=== PATIENT | male | born 1950 | race Caucasian/White ===

== ENCOUNTER 2021-11-14 20:36 | Emergency (ER) | payer BC ==
[~2021-11-14] VITALS: Ht 172.7 cm; Wt 97.0 kg
[~2021-11-14 20:36] MED LIST: ALEVE220 M2 PO; NEXIUM40 M1 PO
[2021-11-14 20:46] VITALS: BP 153/83
[2021-11-14 21:01] VITALS: BP 153/75
[2021-11-14 21:19] LABS: HEMATOCRIT 47.5 % (39.0-50.0); HEMOGLOBIN 15.9 g/dl (14.0-18.0); IMMATURE GRANULOCYTES 0.8 % (0.0-5.0); MEAN CELL VOLUME 93.1 fL CALC (80.0-100.0); MEAN CORPUSCULAR HGB 31.2 pG CALC (26.0-32.0); MEAN CORPUSCULAR HGB CONC 33.5 g/dL CAL (32.0-36.0); NEUT# 6.39 thou/uL (1.82-7.42); RED BLOOD COUNT 5.1 mill/uL (4.70-6.10); RED CELL DISTRI WIDTH 13.3 % (11.5-15.5)
[2021-11-14 21:31] VITALS: BP 128/67
[2021-11-14 21:36] LABS: ALBUMIN 4.3 g/dL (3.2-5.0); ALKALINE PHOSPHATASE 52 u/l (38-126); BILIRUBIN, TOTAL 0.7 mg/dL (0.0-1.4); BUN 19 mg/dL (8-23); BUN/CREATININE RATIO 15 (12-20 (CALC)); CARBON DIOXIDE 27 mmol/l (22-30); CHLORIDE 105 mmol/l (95-108); CREATININE 1.2 mg/dL (0.7-1.3); GFR FOR AFR.AMER. > 60 ML/MIN (>=60 (CALC)); GFR OTHER RACES 60 ML/MIN (>=60 (CALC)); SGOT/AST 26 u/l (19-48); SODIUM 141 mmol/l (137-146); TOTAL PROTEIN 7.9 g/dL (6.3-8.2)
[2021-11-14 21:38] LABS: ANION GAP 12 (6-22 (CALC)); POTASSIUM 3.3 mmol/l (3.5-5.1)
[2021-11-14 21:45] LABS: D-DIMER 0.43 mg/L (0.19-0.60)
[2021-11-14 21:47] LABS: MYOGLOBIN 90 ng/mL (0 - 121)
[2021-11-14 21:53] LABS: ACT PARTIAL THROMBO TIME 22.8 SECONDS (20.0-32.5); PROTHROMBIN TIME 10.2 SECONDS (9.0-12.5)
[2021-11-14 22:30] VITALS: BP 139/69
[2021-11-14] MEDS ORDERED: ASPIRIN81 MG PO (22:47)
[2021-11-14] MEDS ORDERED: PROTONIX40 M2 PO (22:47)
[2021-11-14] MEDS ORDERED: ALLOPURINOL300 MG PO (22:47)
[2021-11-14] MEDS ORDERED: ATORVASTATIN CA80 MG PO (22:48)
[2021-11-14] MEDS ORDERED: METOPROL TAR25 MG PO (22:48)
[2021-11-14] MEDS ORDERED: LOSARTAN POTASS50 MG PO (22:48)
[2021-11-14] MEDS ORDERED: VITAMIN D31000 UNI3 PO (22:49)
[2021-11-14] MEDS ORDERED: POTASSIUM CHLO20 ME1 PO (23:18)
[2021-11-14 23:27] VITALS: BP 139/69
== END 2021-11-14 23:43 | disposition home or self-care (01) | DRG 179 ==
LOC: ED 20:36
PROVIDERS: Family Medicine
DX: U07.1 COVID-19 (principal); R06.00 Dyspnea, unspecified; E87.6 Hypokalemia; I10 Essential (primary) hypertension; Z95.1 Presence of aortocoronary bypass graft
CPT/HCPCS: Q9967

== ENCOUNTER 2022-08-23 12:42 | Observation (INO) | payer BC ==
[~2022-08-23] VITALS: Ht 172.7 cm; Wt 95.4 kg
[~2022-08-23 12:42] MED LIST changes: +ALLOPURINOL300 MG PO; +ASPIRIN81 MG PO; +ATORVASTATIN CA80 MG PO; +LOSARTAN POTASS50 MG PO; +METOPROL TAR25 MG PO; +POTASSIUM CHLO20 ME1 PO; +PROTONIX40 M2 PO; +VITAMIN D31000 UNI3 PO
[2022-08-23 12:51] VITALS: BP 131/59
[2022-08-23] MEDS ORDERED: CRESTOR40 MG PO (13:10)
[2022-08-23 13:12] LABS: BASO% 0.4 % (0-3); EOS% 3.8 % (0-8); IMMATURE GRANULOCYTES 0.5 % (0.0-5.0); LYMPH% 11.7 % (15-41); MEAN CELL VOLUME 95.8 fL CALC (80.0-100.0); MEAN CORPUSCULAR HGB 31.6 pG CALC (26.0-32.0); NEUT# 8.34 thou/uL (1.82-7.42); NEUT% 75.6 % (42-76); RED BLOOD COUNT 4.02 mill/uL (4.70-6.10); RED CELL DISTRI WIDTH 13.5 % (11.5-15.5)
[2022-08-23] MEDS ORDERED: PLAVIX75 MG PO (13:12)
[2022-08-23 13:15] VITALS: BP 106/56
[2022-08-23 13:15] LABS: HEMATOCRIT 38.5 % (39.0-50.0); HEMOGLOBIN 12.7 g/dl (14.0-18.0)
[2022-08-23] MEDS ORDERED: CITALOPRAM40 MG PO (13:15)
[2022-08-23] MEDS ORDERED: LEVOTHYROXIN25 MC1 PO (13:16)
[2022-08-23 13:30] VITALS: BP 121/62
[2022-08-23 13:33] LABS: ALBUMIN 3.5 g/dL (3.2-5.0); BILIRUBIN, TOTAL 0.8 mg/dL (0.2-1.3); CREATININE 3.8 mg/dL (0.7-1.3); POTASSIUM 4.2 mmol/l (3.5-5.1); TOTAL PROTEIN 6.5 g/dL (6.3-8.2)
[2022-08-23 15:22] LABS: URINE BILIRUBIN - DIPSTICK NEGATIVE (NEGATIVE); URINE BLOOD DIPSTICK SMALL (NEGATIVE); URINE GLUCOSE - DIPSTICK NEGATIVE (NEGATIVE); URINE KETONE NEGATIVE (NEGATIVE); URINE LEUK ESTERASE NEGATIVE (NEGATIVE); URINE PH 5.5 (4.5-8.0); URINE PROTEIN - DIPSTICK TRACE mg/dL (NEG-TRACE); URINE SPECIFIC GRAVITY 1.025; URINE UROBILINOGEN - DIPSTICK 0.2 E.U./dL (0.2)
[2022-08-23 15:23] LABS: URINE COLOR DK. YELLOW; URINE NITRITE - DIPSTICK NEGATIVE (Negative)
[2022-08-23 15:30] LABS: URINE RBC 0-2 RBC/hpf (0-5); URINE WBC 0-2 WBC/hpf (0-5)
[2022-08-23 15:32] LABS: URINE FINE GRAN CAST FEW lpf
[2022-08-23 15:33] LABS: URINE HYALINE CAST FEW lpf (NONE-RARE)
[2022-08-23 19:47] VITALS: BP 139/64
[2022-08-23 23:56] VITALS: BP 145/64
[2022-08-24] VITALS (8 sets, daily range): BP systolic 123–161; BP diastolic 64–79
[2022-08-24 05:42] LABS: BASO% 0.4 % (0-3); EOS% 5.7 % (0-8); HEMATOCRIT 34.6 % (39.0-50.0); HEMOGLOBIN 11.3 g/dl (14.0-18.0); IMMATURE GRANULOCYTES 0.6 % (0.0-5.0); LYMPH% 13.9 % (15-41); MEAN CELL VOLUME 96.4 fL CALC (80.0-100.0); MEAN CORPUSCULAR HGB 31.5 pG CALC (26.0-32.0); MEAN CORPUSCULAR HGB CONC 32.7 g/dL CAL (32.0-36.0); MONO% 9.5 % (2-13); NEUT# 5.9 thou/uL (1.82-7.42); NEUT% 69.9 % (42-76); RED BLOOD COUNT 3.59 mill/uL (4.70-6.10); RED CELL DISTRI WIDTH 13.5 % (11.5-15.5)
[2022-08-24 05:50] LABS: BILIRUBIN, TOTAL 0.8 mg/dL (0.2-1.3); POTASSIUM 4.6 mmol/l (3.5-5.1); TOTAL PROTEIN 5.2 g/dL (6.3-8.2)
[2022-08-24 05:52] LABS: ALBUMIN 2.7 g/dL (3.2-5.0); CREATININE 2.1 mg/dL (0.7-1.3)
[2022-08-25 03:09] VITALS: BP 157/74
[2022-08-25 06:40] VITALS: BP 142/86
[2022-08-25 09:50] LABS: ALKALINE PHOSPHATASE 51 u/l (38-126); ANION GAP 11 (6-22 (CALC)); BUN 19 mg/dL (8-23); BUN/CREATININE RATIO 15 (12-20 (CALC)); CARBON DIOXIDE 24 mmol/l (22-30); CHLORIDE 106 mmol/l (95-108); CREATININE 1.3 mg/dL (0.7-1.3); GFR FOR AFR.AMER. > 60 ML/MIN (>=60 (CALC)); GFR OTHER RACES 54 ML/MIN (>=60 (CALC)); POTASSIUM 4.2 mmol/l (3.5-5.1); SGOT/AST 38 u/l (19-48); SODIUM 137 mmol/l (137-146)
[2022-08-25 10:25] LABS: ALBUMIN 3.3 g/dL (3.2-5.0); BILIRUBIN, TOTAL 1.2 mg/dL (0.2-1.3); TOTAL PROTEIN 6.4 g/dL (6.3-8.2)
[2022-08-25 10:35] LABS: BASO% 0.5 % (0-3); EOS% 5.5 % (0-8); HEMATOCRIT 37.7 % (39.0-50.0); HEMOGLOBIN 12.2 g/dl (14.0-18.0); IMMATURE GRANULOCYTES 0.8 % (0.0-5.0); MEAN CELL VOLUME 95.4 fL CALC (80.0-100.0); MEAN CORPUSCULAR HGB 30.9 pG CALC (26.0-32.0); MEAN CORPUSCULAR HGB CONC 32.4 g/dL CAL (32.0-36.0); MONO% 9.4 % (2-13); NEUT# 5.24 thou/uL (1.82-7.42); NEUT% 70.8 % (42-76); RED BLOOD COUNT 3.95 mill/uL (4.70-6.10); RED CELL DISTRI WIDTH 13.3 % (11.5-15.5)
[2022-08-25 10:46] VITALS: BP 139/75
[2022-08-25] MEDS ORDERED: ASPIRIN325 MG PO (11:19)
== END 2022-08-25 13:21 | disposition home or self-care (01) | DRG 684 ==
LOC: ED 12:42 → ED-I 13:38 → ED 14:24 → MS2 14:25
PROVIDERS: Family Medicine; Nurse Practitioner Family; ADMIT Internal Medicine; ATTEND Internal Medicine
DX: N17.9 Acute kidney failure, unspecified (principal); E86.0 Dehydration; I10 Essential (primary) hypertension; E03.9 Hypothyroidism, unspecified; M10.9 Gout, unspecified; I25.2 Old myocardial infarction; Z95.1 Presence of aortocoronary bypass graft; Z96.642 Presence of left artificial hip joint; Z20.822 Contact with and (suspected) exposure to COVID-19
CPT/HCPCS: G0378

== ENCOUNTER 2024-03-28 15:23 | Observation (INO) | payer SELFPAY ==
[~2024-03-28] VITALS: Ht 172.7 cm; Wt 113.0 kg
[2024-03-28] VITALS (20 sets, daily range): BP systolic 174–238; BP diastolic 83–127
[~2024-03-28 15:23] MED LIST changes: +ASPIRIN325 MG PO; +CITALOPRAM40 MG PO; +CRESTOR40 MG PO; +LEVOTHYROXIN25 MC1 PO; +PLAVIX75 MG PO
--- NOTE | 2024-03-28 15:23 | NUR ---
PT TO ER ROOM 14 VIA [facility].
[2024-03-28] MEDS ORDERED: Iopamidol 370 (Isovue) 76% 100 ML SDV IV ONE ×2 (15:30)
[2024-03-28 15:44] LABS: BASO% 0.5 % (0-3); EOS% 3.1 % (0-8); IMMATURE GRANULOCYTES 0.4 % (0.0-5.0); LYMPH% 27.8 % (15-41); MEAN CELL VOLUME 95.6 fL CALC (80.0-100.0); MEAN CORPUSCULAR HGB CONC 33.5 g/dL CAL (32.0-36.0); MONO% 9.6 % (2-13); NEUT# 6.7 thou/uL (1.82-7.42); NEUT% 58.6 % (42-76); RED CELL DISTRI WIDTH 12.7 % (11.5-15.5)
[2024-03-28 15:46] LABS: HEMATOCRIT 47.8 % (39.0-50.0)
[2024-03-28] MEDS ORDERED: CLOPIDOGREL BISULFATE 75 MG/TAB TAB PO ONE (15:50)
[2024-03-28] MEDS ORDERED: ASPIRIN 81 MG/TAB PO ONE (15:50)
[2024-03-28 15:56] LABS: BILIRUBIN, TOTAL 0.9 mg/dL (0.2-1.3); CHOLESTEROL HDL RATIO 4.6 (<4.4 (CALC)); CREATININE 1.2 mg/dL (0.7-1.3); POTASSIUM 4.6 mmol/l (3.5-5.1); TOTAL PROTEIN 7.5 g/dL (6.3-8.2)
[2024-03-28 15:57] LABS: ALBUMIN 4.2 g/dL (3.2-5.0)
[2024-03-28 16:01] LABS: PROTHROMBIN TIME 10.4 SECONDS (9.0-12.5)
[2024-03-28] MEDS ORDERED: LABETALOL HCL 20 MG/ 4 ML CARTRG IV ONE (17:30)
[2024-03-28 18:01] LABS: URINE BILIRUBIN - DIPSTICK Negative (NEGATIVE); URINE BLOOD DIPSTICK Negative (NEGATIVE); URINE COLOR Yellow; URINE GLUCOSE - DIPSTICK Negative (NEGATIVE); URINE KETONE Negative (NEGATIVE); URINE LEUK ESTERASE Negative (NEGATIVE); URINE NITRITE - DIPSTICK Negative (Negative); URINE PH 5.5 (4.5-8.0); URINE PROTEIN - DIPSTICK Negative (NEG-TRACE)
[2024-03-28] MEDS ORDERED: ONDANSETRON HCl 4 MG/2 ML SDV IV ONE (18:05)
[2024-03-28] MEDS ORDERED: ENALAPRILAT 1.25 MG/ML 1ML IV ONE (18:05)
--- NOTE | 2024-03-28 19:12 | NUR ---
REPORT RECEIVED FROM Reji ESPINOZA RN AND CARE OF PT ASSUMED AT THIS TIME
--- NOTE | 2024-03-28 19:41 | NUR ---
REPORT CALLED TO Reji FORBES RN
--- NOTE | 2024-03-28 19:50 | NUR ---
PT TRANSPORTED TO ICU VIA STRETCHER IN STABLE CONDITION. DAUGHTER BEDSIDE
--- NOTE | 2024-03-28 20:05 | NUR ---
PT ARRIVED TO UNIT ACCOMPANIED BY ER NURSE ALCIDES AND PT'S DAUGHTER. PT STOOD FROM STRETCHER AND AMBULATED TO BED WHILE IN ROOM 2 WITH ASSIST. NO DISTRSS. PT AWAKE AND ALERT. NO DEFICITS NOTED. CR MONITOR IN USE. LEADS ADJUSTED. PT AND DAUGHTER ORIENTED TO ROOM AND FLOOR.
[2024-03-28] MEDS ORDERED: ATORVASTATIN CALCIUM 40 MG/TAB PO SCH (21:00)
[2024-03-28] MEDS ORDERED: DEXTROSE 250 ML IV PRN (21:00)
[2024-03-28] MEDS ORDERED: hydrALAZINE HCL 20 MG/ML VIAL(1 ML) IV PRN (21:05)
[2024-03-28] MEDS ORDERED: LABETALOL HCL 20 MG/ 4 ML CARTRG IV PRN (21:05)
--- NOTE | 2024-03-28 21:30 | NUR ---
PT PASSED DYSPHAGIA SCREEN. MED GIVEN ORDERED. MEDICATED FOR ELEVATED BP PER PRN ORDER. DAUGHTER ASSISTED PT WITH USING URINAL ND EMPTIED. URINE NOT OBSERVED. NO CHANGE IN ASSESSMENT.
[2024-03-29] VITALS (27 sets, daily range): BP systolic 136–189; BP diastolic 67–107
--- NOTE | 2024-03-29 | NUR ---
PT AWAKE IN BED. NO CHANGE IN NEUROLOGICAL ASSESSMENT. BP IMPROVED. PT VOIDING TO URINAL. CLEAR, YELLOW URINE - DAUGHTER ASSIST WITH URINAL WITHOUT DISPOSING OF URINE.
--- NOTE | 2024-03-29 02:00 | NUR ---
PT RESTING. NO DISTRESS. DAUGHTER REMAINS AT BEDSIDE. VSS.
--- NOTE | 2024-03-29 04:18 | NUR ---
PT ASSISTED UP TO THE SIDE OF THE BED TO USE THE URINAL BY HIS DAUGHTER AT BEDSIDE. VSS. NO DISTRESS. NO CHANGE IN MENTL STATUS. NO DEFICITS. HOB MAINTAINED ABOVE 30 DEGREES.
[2024-03-29] MEDS ORDERED: LEVOTHYROXINE SODIUM 25 MCG/TAB PO SCH (06:00)
--- NOTE | 2024-03-29 06:13 | NUR ---
PT RESTING IN BED WITH EYES CLOSED, EASILY AROUSED. NO DISTRESS. NO CHANGE IN MENTAL STATUS OR MEND ASSESSMENT OVER NIGHT. DAUGHTER REMAINS AT BEDSIDE. SCD IN USE.
--- NOTE | 2024-03-29 07:12 | NUR ---
REPORT GIVEN TO ON-COMING NURSE, BOBBY SONG.
--- NOTE | 2024-03-29 08:00 | NUR ---
PT IS SITTING UP IN BED WITH DAUGHTER AT THE BEDSIDE. CALL SIMS IN REACH.
[2024-03-29] MEDS ORDERED: PANTOPRAZOLE SODIUM Sesquihydr 40 MG/TAB PO SCH (09:00)
[2024-03-29] MEDS ORDERED: LOSARTAN Potassium 50 MG/TAB PO SCH (09:00)
[2024-03-29] MEDS ORDERED: ALLOPURINOL 100 MG/TAB PO SCH (09:00)
[2024-03-29] MEDS ORDERED: CLOPIDOGREL BISULFATE 75 MG/TAB TAB PO SCH (09:00)
[2024-03-29] MEDS ORDERED: METOPROLOL TARTRATE 25 MG/TAB PO SCH (09:00)
--- NOTE | 2024-03-29 10:27 | NUR ---
PT IS SITTING UP IN BED WITH DAUGHTER AT THE BEDSIDE. CALL SIMS IN REACH.
--- NOTE | 2024-03-29 11:54 | NUR ---
PT IS IN BED, EATING LUNCH. CALL SIMS IN REACH.
--- NOTE | 2024-03-29 13:58 | NUR ---
PT IS SITTING IN BED AWAKE. DAUGHTER AND FRIEND AT THE BEDSIDE. CALL SIMS IN REACH.
--- NOTE | 2024-03-29 16:10 | NUR ---
PT IS LAYING IN BED, DAUGHTER AT THE BEDSIDE. CALL SIMS IN REACH.
--- NOTE | 2024-03-29 18:08 | NUR ---
PT IS LAYING DOWN IN BED WITH CALL SIMS IN REACH.
--- NOTE | 2024-03-29 20:55 | NUR ---
PATIENT RESTING IN BED WATCHING TV. ALERT AND ORIENTED X3. METOPROLOL HELD FOR HR <60, HYDRALAZINE ADMINISTERED FOR BP >170; PATIENT TOLERATED WELL. ASSESSMENT COMPLETED. DENIES PAIN AT THIS TIME. NO CONCERNS EXPRESSED, NO DISTRESS NOTED. CALL LIGHT WITHIN REACH, INSTRUCTED TO CALL FOR ASSISTANCE. DAUGHTER AT BEDSIDE, BOTH VERBALIZES UNDERSTANDING.
[2024-03-29] MEDS ORDERED: amLODIPine BESYLATE 5 MG/TAB PO SCH (21:48)
[2024-03-30] VITALS (10 sets, daily range): BP systolic 123–170; BP diastolic 58–88
--- NOTE | 2024-03-30 00:25 | NUR ---
RESTING QUIETLY EYES CLOSED. DENIES PAIN AT THIS TIME. CALL LIGHT WITHIN REACH. DAUGHTER AT BEDSIDE.
--- NOTE | 2024-03-30 04:28 | NUR ---
RESTING QUIETLY IN BED, EASILY AWAKENED. ASSESSMENT COMPLETE. DENIES PAIN AT THIS TIME. NO DISTRESS NOTED. CALL LIGHT WITHIN REACH, DAUGHTER AT BEDSIDE.
[2024-03-30] MEDS ORDERED: AMLODIPINE BESYL5 MG PO (07:44)
[2024-03-30] MEDS ORDERED: PLAVIX75 MG PO (07:44)
[2024-03-30] MEDS ORDERED: ASPIRIN ADULT L81 M2 PO (07:45)
--- NOTE | 2024-03-30 08:02 | NUR ---
PT IS AWAKE RESTING IN BED, CALL LIGHT IN REACH
--- NOTE | 2024-03-30 10:00 | NUR ---
PT IS SITTING IN BED WATCHING TV, DAUGHTER AT BEDSIDE. CALL SIMS IN REAC.
--- NOTE | 2024-03-30 11:00 | NUR ---
Discharge instructions given. Patient verbalizes understanding of same. Discharged in stable condition via Wheelchair to Home with family. All belongings sent with pt. IV and telemetry removed.
== END 2024-03-30 11:00 | disposition home or self-care (01) | DRG 69 ==
LOC: ED 15:23 → ED-I 17:30 → ED 18:05 → MS2 18:06 → ICU 18:06
PROVIDERS: Family Medicine; ADMIT Internal Medicine; ATTEND Internal Medicine
DX: G45.9 Transient cerebral ischemic attack, unspecified (principal); I16.0 Hypertensive urgency; I10 Essential (primary) hypertension; E03.9 Hypothyroidism, unspecified; I25.10 Atherosclerotic heart disease of native coronary artery without angina pectoris; K21.9 Gastro-esophageal reflux disease without esophagitis; E78.5 Hyperlipidemia, unspecified; M10.9 Gout, unspecified; Z95.1 Presence of aortocoronary bypass graft; Z79.82 Long term (current) use of aspirin
CPT/HCPCS: Q9967